=== PATIENT | male | born 1990 | race Caucasian/White ===

== ENCOUNTER 2016-07-30 11:38 | Inpatient (IN) | payer OTHER ==
[2016-07-30 12:56] VITALS: BMI 21.6
--- NOTE | 2016-07-30 13:47 | HP ---
CIWA Score - CIWA Score Nausea/Vomitin Muscle Tremors: 4-Moderate,w/Arms Extend Anxiety: 3 Agitation: 4-Moderately Restless Paroxysmal Sweats: 3 Orientation: 0-Oriented Tacttile Disturbances: 0-None Auditory Disturbances: 0-None Visual Disturbances: 0-None Headache: 0-None Present CIWA-Ar Total Score: 16 Admission ROS BHS - HPI Chief Complaint: I cant take the drinking anymore. Allergies/Adverse Reactions: Allergies Allergy/AdvReac Type Severity Reaction Status Date / Time No Known Allergies Allergy Verified 07/30/16 13:07 History of Present Illness: Pt is a 25yr old male with a history of alcohol and K2 dependence seeking detox for treatment. Exam Limitations: No Limitations - Ebola screening Have you traveled outside of the country in the last 21 days: No Have you had contact with anyone from an Ebola affected area: No Have you been sick,other than usual withdrawal symptoms: No Do you have a fever: No - Review of Systems Constitutional: Chills, Diaphoresis, Loss of Appetite, Night Sweats, Changes in sleep, Weight Stable, Unintentional Wgt. Loss EENT: reports: No Symptoms Reported Respiratory: reports: No Symptoms reported Cardiac: reports: No Symptoms Reported GI: reports: Poor Appetite, Poor Fluid Intake : reports: No Symptoms Reported Musculoskeletal: reports: Back Pain, Joint Pain Integumentary: reports: Flushing, Sweating Neuro: reports: Tingling, Tremors Endocrine: reports: Excessive Sweating, Flushing, Intolerance to Cold, Intolerance to Heat Hematology: reports: No Symptoms Reported Psychiatric: reports: Judgement Intact, Mood/Affect Appropiate, Orientated x3, Agitated, Anxious Other Systems: Reviewed and Negative Patient History - Patient Medical History Hx Anemia: No Hx Asthma: No Hx Chronic Obstructive Pulmonary Disease (COPD): No Hx Cancer: No Hx Cardiac Disorders: No Hx Congestive Heart Failure: No Hx Hypertension: No Hx Hypercholesterolemia: No Hx Pacemaker: No HX Cerebrovascular Accident: No Hx Seizures: No Hx Dementia: No Hx Diabetes: No Hx Gastrointestinal Disorders: No Hx Liver Disease: No Hx Genitourinary Disorders: No Hx Sexually Transmitted Disorders: No Hx Renal Disease (ESRD): No Hx Thyroid Disease: No Hx Human Immunodeficiency Virus (HIV): No (negative ) Hx Hepatitis C: No (negative) Hx Depression: Yes Hx Suicide Attempt: No (denies) Hx Bipolar Disorder: Yes Hx Schizophrenia: No - Patient Surgical History Past Surgical History: Yes Other Surgical History: R inguinal hernia repair. Anesthesia Reaction: No - PPD History Previous Implant?: Yes Documented Results: Negative w/o proof Implanted On Prior [facility] Admission?: No PPD to be Administered?: Yes - Reproductive History Patient is a Female of Child Bearing Age (11 -55 yrs old): No - Smoking Cessation Smoking history: Current every day smoker Have you smoked in the past 12 months: Yes Aproximately how many cigarettes per day: 4 Hx Chewing Tobacco Use: No Initiated information on smoking cessation: Yes 'Breaking Loose' booklet given: 07/30/16 - Substance & Tx. History Hx Alcohol Use: Yes Substance Use Type: Alcohol, Marijuana - Substances Abused Alcohol Route: Oral Frequency: Daily Amount used: 16 SHOTS COGNAC Age of first use: 17 Date of Last Use: 07/30/16 Marijuana/Hashish Route: Smoking Frequency: 3-6 times per week Amount used: 5 JOINTS Age of first use: 15 Date of Last Use: 07/29/16 K2 Route: Smoking Frequency: 1-2 times per week Amount used: 3 JOINTS Age of first use: 20 Date of Last Use: 07/29/16 Family Disease History - Family Disease History Family History: Denies Admission Physical Exam S - Vital Signs Vital Signs: Vital Signs - 24 hr 07/30/16 12:54 Temperature 97.1 F L Pulse Rate 96 H Respiratory 20 Rate Blood Pressure 109/73 - Physical General Appearance: Yes: Appropriately Dressed, Moderate Distress, Thin, Tremorous, Irritable, Sweating, Anxious HEENTM: Yes: Normal Voice Respiratory: Yes: Lungs Clear, Normal Breath Sounds, No Respiratory Distress Neck: Yes: No masses,lesions,Nodules Breast: Yes: Within Normal Limits Cardiology: Yes: Regular Rhythm, Regular Rate, S1, S2, Tachycardia Abdominal: Yes: Normal Bowel Sounds, Non Tender, Soft Genitourinary: Yes: Within Normal Limits Back: Yes: Normal Inspection Musculoskeletal: Yes: full range of Motion, Back pain Extremities: Yes: Tremors Neurological: Yes: Fully Oriented, Alert, Normal Response Integumentary: Yes: Normal Color, Diaphoresis Lymphatic: Yes: Within Normal Limits - Diagnostic (1) Alcohol dependence with uncomplicated withdrawal Current Visit: Yes Status: Chronic (2) Nicotine dependence Current Visit: Yes Status: Chronic Qualifiers: Nicotine product type: cigarettes Substance use status: uncomplicated Qualified Code(s): F17.210 - Nicotine dependence, cigarettes, uncomplicated (3) Weight loss Current Visit: Yes Status: Acute Cleared for Admission S - Detox or Rehab [facility] Level of Care: Medically Managed Detox Regimen/Protocol: Librium BHS Breath Alcohol Content Breath Alcohol Content: 0 Urine Drug Screen - Results Drug Screen Negative: No Urine Drug Screen Results: THC-Marijuana
[2016-07-30] MEDS ORDERED: NICOTINE POLACRILEX 2 MG GUM BUC PRN (13:53)
[2016-07-30] MEDS ORDERED: LOPERAMIDE HCL 2 MG CAPSULE PO PRN (13:53)
[2016-07-30] MEDS ORDERED: chlordiazePOXIDE HCL 25 MG CAPSULE PO PRN (13:53)
[2016-07-30] MEDS ORDERED: MAGNESIUM HYDROX 2400MG/30ML ORAL SUSPENSION 30 ML CUP PO PRN (13:53)
[2016-07-30] MEDS ORDERED: MAGNESIUM CITRATE 300 ML BOTTLE PO PRN (13:53)
[2016-07-30] MEDS ORDERED: MENTHOL/PHENOL 1 EACH UD MM PRN (13:53)
[2016-07-30] MEDS ORDERED: P-EPHED 60MG/TRIPROLIDI 2.5MG TABLET PO PRN (13:53)
[2016-07-30] MEDS ORDERED: diphenhydrAMINE HCL 50 MG CAPSULE PO PRN (13:53)
[2016-07-30] MEDS ORDERED: IBUPROFEN 400 MG TABLET (FP) PO PRN (13:53)
[2016-07-30] MEDS ORDERED: guaiFENesin/D-METHORPHAN HB 10 ML UNIT-DOSE CUPS PO PRN (13:53)
[2016-07-30] MEDS ORDERED: MAG HYDROX/AL HYDROX/SIMETH 30 ML UNIT-DOSE CUP PO PRN (13:53)
[2016-07-30] MEDS ORDERED: hydrOXYzine PAMOATE 50 MG CAPSULE (FP) PO PRN (13:53)
[2016-07-30] MEDS ORDERED: ACETAMINOPHEN 325 MG TABLET (FP) PO PRN (13:53)
[2016-07-30] MEDS ORDERED: chlordiazePOXIDE HCL 25 MG CAPSULE PO ONE (14:50)
--- NOTE | 2016-07-30 16:51 | CONSULT ---
[facility] Psychiatric Consult - Data Date of interview: 07/30/16 Admission source: [facility] Identifying data: First admission to [facility] for this 25 y/o male seeking detox treatment on for alcohol and marijuana dependence (K2) .Patient is single without children,domiciled,unemployed and dependent on his mother for financial support. Substance Abuse History: - Smoking Cessation. Smoking history: Current every day smoker. Have you smoked in the past 12 months: Yes. Aproximately how many cigarettes per day: 4. Hx Chewing Tobacco Use: No. Initiated information on smoking cessation: Yes. 'Breaking Loose' booklet given: 07/30/16. - Substance & Tx. History. Hx Alcohol Use: Yes. Substance Use Type: Alcohol, Marijuana. - Substances Abused. Alcohol. Route: Oral. Frequency: Daily. Amount used : 16 SHOTS COGNAC. Age of first use: 17. Date of Last Use: 07/30/16. Marijuana/Hashish. Route: Smoking. Frequency: 3-6 times per week. Amount used : 5 JOINTS. Age of first use: 15. Date of Last Use: 07/29/16. K2. Route: Smoking. Frequency: 1-2 times per week. Amount used: 3 JOINTS. Age of first use: 20. Date of Last Use: 07/29/16. Confirmed by patient. Medical History: Patient endorses good general health. Psychiatric History: Patient admits to a history of one psychiatric hospitalization at [facility] (2016).Suicidal ideation and behavioral dyscontrol were the circumstances leading to admission to the psychiatric inpatient service.Mr Duncan is uncertain about his " true " diagnosis.He does admit to recurrent " depressed feelings " but,according to the patient they seem to coincide with his continuous use of alcohol/marijuana (K2).He has neglected to honor his aftercare arrangements.No follow up since his discharge from [facility] (14-day retention).Mr Duncan indicates that he was not placed on psychotropic medications.Chronic issue : insomnia.Mr Duncan is requesting seroquel at bedtime (due to past history of good response to that drug).Patient denies history of suicide attempts. Physical/Sexual Abuse/Trauma History: Patient denies. Additional Comment: Urine Drug Screen Results: THC-Marijuana.Noted. Mental Status Exam - Mental Status Exam Alert and Oriented to: Time, Place, Person Cognitive Function: Good Patient Appearance: Well Groomed Mood: Withdrawn, Anxious (dysphoric), Apprehensive Affect: Mood Congruent Patient Behavior: Fatigued, Appropriate, Cooperative Speech Pattern: Clear Voice Loudness: Normal Thought Process: Goal Oriented Hallucinations: Denies Suicidal Ideation: Denies Homicidal Ideation: Denies Insight/Judgement: Poor Sleep: Poorly, Difficulty falling asleep Appetite: Good Muscle strength/Tone: Normal Gait/Station: Normal Psychiatric Findings - Problem List ([place] 1, 2,3) (1) Alcohol dependence with uncomplicated withdrawal Current Visit: Yes Status: Acute (2) Nicotine dependence Current Visit: Yes Status: Acute Qualifiers: Nicotine product type: cigarettes Substance use status: uncomplicated Qualified Code(s): F17.210 - Nicotine dependence, cigarettes, uncomplicated (3) Marijuana dependence Current Visit: Yes Status: Acute (4) Substance induced mood disorder Current Visit: Yes Status: Acute (5) Weight loss Current Visit: Yes Status: Acute (6) Insomnia Current Visit: Yes Status: Acute - Initial Treatment Plan Initial Treatment Plan: Psychoeducation.Detoxification.Medication :seroquel 50 mg po hs.Side effects/benefits discussed with the patient.He agrees with this plan.Observation.
[2016-07-30] MEDS: chlordiazePOXIDE HCL 25 MG CAPSULE PO SCH ×2 (17:13→22:12)
[2016-07-30 19:24] LABS: URINE APPEARANCE CLEAR; URINE BILIRUBIN NEGATIVE (NEGATIVE); URINE BLOOD NEGATIVE (NEGATIVE); URINE COLOR YELLOW; URINE GLUCOSE (UA) NEGATIVE (NEGATIVE); URINE KETONE NEGATIVE (NEGATIVE); URINE LEUK ESTERASE NEGATIVE (NEGATIVE); URINE NITRITE NEGATIVE (NEGATIVE); URINE PROTEIN NEGATIVE (NEGATIVE); URINE UROBILINOGEN NEGATIVE E.U./dl (0.2-1.0)
[2016-07-30] MEDS: THIAMINE HCL 100 MG TABLET (FP) PO SCH (22:12)
[2016-07-30] MEDS: QUEtiapine FUMARATE 50 MG TABLET PO SCH (22:12)
[2016-07-31] MEDS: chlordiazePOXIDE HCL 25 MG CAPSULE PO SCH ×4 (05:46→22:13)
[2016-07-31 09:00] LABS: HIV 1 & 2 AB NEGATIVE; HIV 1 AGp24 NEGATIVE
[2016-07-31] MEDS: NICOTINE 7 MG/24 HOURS TOPICAL PATCH TD SCH (10:05)
[2016-07-31] MEDS: PRENATAL VITAMINS W/ FOLIC ACID TABLET (FP) PO SCH (10:05)
[2016-07-31 10:15] LABS: MCHC 33.2 g/dl (32.0-35.9); MEAN CELL VOLUME 96.4 fl (80-96); MEAN PLT VOLUME 8.3 fl (7.5-11.1); PLATELET COUNT 359 K/MM3 (134-434); RDW 12.9 % (11.9-15.9); WHITE BLOOD COUNT 6.8 K/mm3 (4.0-10.0)
[2016-07-31 11:02] LABS: ALBUMIN 4.3 g/dl (3.4-5.0); ALK PHOS 70 U/L (45-117); ANION GAP 12 (8-16); BILIRUBIN,TOTAL 0.9 mg/dL (0.2-1.0); CALCIUM 9.6 mg/dL (8.5-10.1); CO2 25 mmol/L (21-32); CREATININE 1.1 mg/dL (0.7-1.3); GLUCOSE,RANDOM 102 mg/dL (74-106); SGOT/AST 11 U/L (15-37); SGPT/ALT 10 U/L (12-78); TOT PROT 7.5 g/dl (6.4-8.2)
--- NOTE | 2016-07-31 11:15 | PN ---
[facility] CIWA - CIWA Score Nausea/Vomitin-No Nausea/No Vomiting Muscle Tremors: 4-Moderate,w/Arms Extend Anxiety: 4-Mod. Anxious/Guarded Agitation: 4-Moderately Restless Paroxysmal Sweats: 1-Minimal Palms Moist Orientation: 0-Oriented Tacttile Disturbances: 3-Moderate Itch/Numb/Burn Auditory Disturbances: 0-None Visual Disturbances: 0-None Headache: 0-None Present CIWA-Ar Total Score: 16 BHS Progress Note (SOAP) Subjective: ANXIETY,SWEATS,NAUSEA/VOMITING,MUSCLE ACHES. Objective: 07/31/16 11:29 Vital Signs Temperature 96.4 F L 07/31/16 09:43 Pulse Rate 60 07/31/16 09:43 Respiratory Rate 18 07/31/16 09:43 Blood Pressure 124/90 07/31/16 09:43 O2 Sat by Pulse Oximetry (%) Laboratory Last Values WBC 6.8 K/mm3 (4.0-10.0) 07/31/16 06:00 RBC 4.54 M/mm3 (4.00-5.60) 07/31/16 06:00 Hgb 14.5 GM/dL (11.7-16.9) 07/31/16 06:00 Hct 43.7 % (35.4-49) 07/31/16 06:00 MCV 96.4 fl (80-96) H 07/31/16 06:00 MCHC 33.2 g/dl (32.0-35.9) 07/31/16 06:00 RDW 12.9 % (11.9-15.9) 07/31/16 06:00 Plt Count 359 K/MM3 (134-434) 07/31/16 06:00 MPV 8.3 fl (7.5-11.1) 07/31/16 06:00 Sodium 137 mmol/L (136-145) 07/31/16 06:00 Potassium 3.9 mmol/L (3.5-5.1) 07/31/16 06:00 Chloride 100 mmol/L (98-107) 07/31/16 06:00 Carbon Dioxide 25 mmol/L (21-32) 07/31/16 06:00 Anion Gap 12 (8-16) 07/31/16 06:00 BUN 13 mg/dL (7-18) 07/31/16 06:00 Creatinine 1.1 mg/dL (0.7-1.3) 07/31/16 06:00 Creat Clearance w eGFR > 60 (>60) 07/31/16 06:00 Random Glucose 102 mg/dL (74-106) 07/31/16 06:00 Calcium 9.6 mg/dL (8.5-10.1) 07/31/16 06:00 Total Bilirubin 0.9 mg/dL (0.2-1.0) 07/31/16 06:00 AST 11 U/L (15-37) L 07/31/16 06:00 ALT 10 U/L (12-78) L 07/31/16 06:00 Alkaline Phosphatase 70 U/L (45-117) 07/31/16 06:00 Total Protein 7.5 g/dl (6.4-8.2) 07/31/16 06:00 Albumin 4.3 g/dl (3.4-5.0) 07/31/16 06:00 Urine Color Yellow 07/30/16 14:00 Urine Appearance Clear 07/30/16 14:00 Urine pH 5.0 (5.0-8.0) 07/30/16 14:00 Ur Specific [place] 1.032 (1.001-1.035) 07/30/16 14:00 Urine Protein Negative (NEGATIVE) 07/30/16 14:00 Urine Glucose (UA) Negative (NEGATIVE) 07/30/16 14:00 Urine Ketones Negative (NEGATIVE) 07/30/16 14:00 Urine Blood Negative (NEGATIVE) 07/30/16 14:00 Urine Nitrite Negative (NEGATIVE) 07/30/16 14:00 Urine Bilirubin Negative (NEGATIVE) 07/30/16 14:00 Urine Urobilinogen Negative E.U./dl (0.2-1.0) 07/30/16 14:00 Ur Leukocyte Esterase Negative (NEGATIVE) 07/30/16 14:00 HIV 1&2 Antibody Screen Negative 07/30/16 13:40 HIV P24 Antigen Negative 07/30/16 13:40 Assessment: 07/31/16 11:30 WITHDRAWAL SX Plan: CONTINUE DETOX TIGAN OR ZOFRAN PRN MOTRIN PRN.
[2016-07-31] MEDS ORDERED: ONDANSETRON *ODT* 4 MG TABLET SL PRN (11:31)
--- NOTE | 2016-07-31 16:18 | EKG ---
Test Reason : Blood Pressure : / mmHG Vent. Rate : 078 BPM Atrial Rate : 078 BPM P-R Int : 126 ms QRS Dur : 090 ms QT Int : 348 ms P-R-T Axes : 024 070 052 degrees QTc Int : 396 ms NORMAL SINUS RHYTHM WITH SINUS ARRHYTHMIA NORMAL ECG NO PREVIOUS ECGS AVAILABLE Confirmed by JONA CAMPBELL, JENNIFFER ([id number]) on 07/31/2016 4:18:01 PM Referred By: Confirmed By:JENNIFFER TENORIO MD
[2016-07-31] MEDS: QUEtiapine FUMARATE 50 MG TABLET PO SCH (22:12)
[2016-07-31] MEDS: THIAMINE HCL 100 MG TABLET (FP) PO SCH (22:12)
[2016-08-01] MEDS: chlordiazePOXIDE HCL 25 MG CAPSULE PO SCH ×2 (05:39→10:02)
[2016-08-01] MEDS: NICOTINE 7 MG/24 HOURS TOPICAL PATCH TD SCH (10:02)
[2016-08-01] MEDS: PRENATAL VITAMINS W/ FOLIC ACID TABLET (FP) PO SCH (10:02)
--- NOTE | 2016-08-01 10:35 | PN ---
[facility] CIWA - CIWA Score Nausea/Vomitin-Mild Nausea/No Vomiting Muscle Tremors: 4-Moderate,w/Arms Extend Anxiety: 4-Mod. Anxious/Guarded Agitation: 4-Moderately Restless Paroxysmal Sweats: 3 Orientation: 0-Oriented Tacttile Disturbances: 0-None Auditory Disturbances: 0-None Visual Disturbances: 0-None Headache: 0-None Present CIWA-Ar Total Score: 16 BHS Progress Note (SOAP) Subjective: Anxiety,tremors,interrupted sleep,restless Objective: 08/01/16 10:34 Vital Signs - 8 hr 08/01/16 08/01/16 08/01/16 03:31 06:21 09:28 Temperature 97.6 F 96.6 F L Pulse Rate 79 88 Respiratory 18 18 18 Rate Blood Pressure 125/82 133/94 Laboratory Last Values WBC 6.8 K/mm3 (4.0-10.0) 07/31/16 06:00 RBC 4.54 M/mm3 (4.00-5.60) 07/31/16 06:00 Hgb 14.5 GM/dL (11.7-16.9) 07/31/16 06:00 Hct 43.7 % (35.4-49) 07/31/16 06:00 MCV 96.4 fl (80-96) H 07/31/16 06:00 MCHC 33.2 g/dl (32.0-35.9) 07/31/16 06:00 RDW 12.9 % (11.9-15.9) 07/31/16 06:00 Plt Count 359 K/MM3 (134-434) 07/31/16 06:00 MPV 8.3 fl (7.5-11.1) 07/31/16 06:00 Sodium 137 mmol/L (136-145) 07/31/16 06:00 Potassium 3.9 mmol/L (3.5-5.1) 07/31/16 06:00 Chloride 100 mmol/L (98-107) 07/31/16 06:00 Carbon Dioxide 25 mmol/L (21-32) 07/31/16 06:00 Anion Gap 12 (8-16) 07/31/16 06:00 BUN 13 mg/dL (7-18) 07/31/16 06:00 Creatinine 1.1 mg/dL (0.7-1.3) 07/31/16 06:00 Creat Clearance w eGFR > 60 (>60) 07/31/16 06:00 Random Glucose 102 mg/dL (74-106) 07/31/16 06:00 Calcium 9.6 mg/dL (8.5-10.1) 07/31/16 06:00 Total Bilirubin 0.9 mg/dL (0.2-1.0) 07/31/16 06:00 AST 11 U/L (15-37) L 07/31/16 06:00 ALT 10 U/L (12-78) L 07/31/16 06:00 Alkaline Phosphatase 70 U/L (45-117) 07/31/16 06:00 Total Protein 7.5 g/dl (6.4-8.2) 07/31/16 06:00 Albumin 4.3 g/dl (3.4-5.0) 07/31/16 06:00 Urine Color Yellow 07/30/16 14:00 Urine Appearance Clear 07/30/16 14:00 Urine pH 5.0 (5.0-8.0) 07/30/16 14:00 Ur Specific [place] 1.032 (1.001-1.035) 07/30/16 14:00 Urine Protein Negative (NEGATIVE) 07/30/16 14:00 Urine Glucose (UA) Negative (NEGATIVE) 07/30/16 14:00 Urine Ketones Negative (NEGATIVE) 07/30/16 14:00 Urine Blood Negative (NEGATIVE) 07/30/16 14:00 Urine Nitrite Negative (NEGATIVE) 07/30/16 14:00 Urine Bilirubin Negative (NEGATIVE) 07/30/16 14:00 Urine Urobilinogen Negative E.U./dl (0.2-1.0) 07/30/16 14:00 Ur Leukocyte Esterase Negative (NEGATIVE) 07/30/16 14:00 RPR Titer Nonreactive (NONREACTIVE) 07/31/16 06:00 HIV 1&2 Antibody Screen Negative 07/30/16 13:40 HIV P24 Antigen Negative 07/30/16 13:40 labs noted Assessment: 08/01/16 10:34 withdrawal sx. Plan: continue detox
[2016-08-01] MEDS: chlordiazePOXIDE 5 MG CAPSULE PO SCH ×2 (17:09→22:10)
[2016-08-01] MEDS: QUEtiapine FUMARATE 50 MG TABLET PO SCH (22:09)
[2016-08-01] MEDS: THIAMINE HCL 100 MG TABLET (FP) PO SCH (22:09)
[2016-08-02] MEDS: chlordiazePOXIDE 5 MG CAPSULE PO SCH ×2 (05:14→10:09)
[2016-08-02] MEDS: PRENATAL VITAMINS W/ FOLIC ACID TABLET (FP) PO SCH (10:09)
[2016-08-02] MEDS: NICOTINE 7 MG/24 HOURS TOPICAL PATCH TD SCH (10:09)
--- NOTE | 2016-08-02 13:59 | PN ---
BHS Progress Note (SOAP) Subjective: Body Aches, Poor Appetite, Diarrhea, Back Ache, Nausea, interrupted sleep, Sweating. Objective: PT. A & O X 3, OBSERVED AMBULATING ON UNIT. 08/02/16 13:58 Vital Signs Temperature 96.8 F L 08/02/16 10:57 Pulse Rate 85 08/02/16 10:57 Respiratory Rate 20 08/02/16 10:57 Blood Pressure 126/88 08/02/16 10:57 O2 Sat by Pulse Oximetry (%) Laboratory Last Values WBC 6.8 K/mm3 (4.0-10.0) 07/31/16 06:00 RBC 4.54 M/mm3 (4.00-5.60) 07/31/16 06:00 Hgb 14.5 GM/dL (11.7-16.9) 07/31/16 06:00 Hct 43.7 % (35.4-49) 07/31/16 06:00 MCV 96.4 fl (80-96) H 07/31/16 06:00 MCHC 33.2 g/dl (32.0-35.9) 07/31/16 06:00 RDW 12.9 % (11.9-15.9) 07/31/16 06:00 Plt Count 359 K/MM3 (134-434) 07/31/16 06:00 MPV 8.3 fl (7.5-11.1) 07/31/16 06:00 Sodium 137 mmol/L (136-145) 07/31/16 06:00 Potassium 3.9 mmol/L (3.5-5.1) 07/31/16 06:00 Chloride 100 mmol/L (98-107) 07/31/16 06:00 Carbon Dioxide 25 mmol/L (21-32) 07/31/16 06:00 Anion Gap 12 (8-16) 07/31/16 06:00 BUN 13 mg/dL (7-18) 07/31/16 06:00 Creatinine 1.1 mg/dL (0.7-1.3) 07/31/16 06:00 Creat Clearance w eGFR > 60 (>60) 07/31/16 06:00 Random Glucose 102 mg/dL (74-106) 07/31/16 06:00 Calcium 9.6 mg/dL (8.5-10.1) 07/31/16 06:00 Total Bilirubin 0.9 mg/dL (0.2-1.0) 07/31/16 06:00 AST 11 U/L (15-37) L 07/31/16 06:00 ALT 10 U/L (12-78) L 07/31/16 06:00 Alkaline Phosphatase 70 U/L (45-117) 07/31/16 06:00 Total Protein 7.5 g/dl (6.4-8.2) 07/31/16 06:00 Albumin 4.3 g/dl (3.4-5.0) 07/31/16 06:00 Urine Color Yellow 07/30/16 14:00 Urine Appearance Clear 07/30/16 14:00 Urine pH 5.0 (5.0-8.0) 07/30/16 14:00 Ur Specific [place] 1.032 (1.001-1.035) 07/30/16 14:00 Urine Protein Negative (NEGATIVE) 07/30/16 14:00 Urine Glucose (UA) Negative (NEGATIVE) 07/30/16 14:00 Urine Ketones Negative (NEGATIVE) 07/30/16 14:00 Urine Blood Negative (NEGATIVE) 07/30/16 14:00 Urine Nitrite Negative (NEGATIVE) 07/30/16 14:00 Urine Bilirubin Negative (NEGATIVE) 07/30/16 14:00 Urine Urobilinogen Negative E.U./dl (0.2-1.0) 07/30/16 14:00 Ur Leukocyte Esterase Negative (NEGATIVE) 07/30/16 14:00 RPR Titer Nonreactive (NONREACTIVE) 07/31/16 06:00 HIV 1&2 Antibody Screen Negative 07/30/16 13:40 HIV P24 Antigen Negative 07/30/16 13:40 LABS NOTED. Assessment: 08/02/16 13:59 WITHDRAWAL SYMPTOMS. Plan: CONTINUE DETOX.
[2016-08-02] MEDS: chlordiazePOXIDE HCL 10 MG CAPSULE PO SCH ×2 (17:18→22:21)
[2016-08-02] MEDS: QUEtiapine FUMARATE 50 MG TABLET PO SCH (22:21)
[2016-08-02] MEDS: THIAMINE HCL 100 MG TABLET (FP) PO SCH (22:21)
[2016-08-03] MEDS: chlordiazePOXIDE HCL 10 MG CAPSULE PO SCH (05:13)
--- NOTE | 2016-08-03 09:53 | DS ---
[facility] Detox Discharge Summary Admission Date: 07/30/16 Discharge Date: 08/03/16 - History Present History: Alcohol Dependence, Cannabis Dependence Pertinent Past History: Insomnia - Physical Exam Results Vital Signs: Vital Signs Temperature 97.3 F L 08/03/16 06:17 Pulse Rate 84 08/03/16 06:17 Respiratory Rate 18 08/03/16 06:17 Blood Pressure 116/79 08/03/16 06:17 O2 Sat by Pulse Oximetry (%) Pertinent Admission Physical Exam Findings: Withdrawal sx. Laboratory Tests 07/30/16 07/30/16 07/31/16 13:40 14:00 06:00 WBC 6.8 RBC 4.54 Hgb 14.5 Hct 43.7 MCV 96.4 H MCHC 33.2 RDW 12.9 Plt Count 359 MPV 8.3 Sodium Potassium Chloride Carbon Dioxide Anion Gap BUN Creatinine Creat Clearance w eGFR Random Glucose Calcium Total Bilirubin AST ALT Alkaline Phosphatase Total Protein Albumin Urine Color Yellow Urine Appearance Clear Urine pH 5.0 Ur Specific [place] 1.032 Urine Protein Negative Urine Glucose (UA) Negative Urine Ketones Negative Urine Blood Negative Urine Nitrite Negative Urine Bilirubin Negative Urine Urobilinogen Negative Ur Leukocyte Esterase Negative RPR Titer HIV 1&2 Antibody Screen Negative HIV P24 Antigen Negative 07/31/16 07/31/16 06:00 06:00 WBC RBC Hgb Hct MCV MCHC RDW Plt Count MPV Sodium 137 Potassium 3.9 Chloride 100 Carbon Dioxide 25 Anion Gap 12 BUN 13 Creatinine 1.1 Creat Clearance w eGFR > 60 Random Glucose 102 Calcium 9.6 Total Bilirubin 0.9 AST 11 L ALT 10 L Alkaline Phosphatase 70 Total Protein 7.5 Albumin 4.3 Urine Color Urine Appearance Urine pH Ur Specific [place] Urine Protein Urine Glucose (UA) Urine Ketones Urine Blood Urine Nitrite Urine Bilirubin Urine Urobilinogen Ur Leukocyte Esterase RPR Titer Nonreactive HIV 1&2 Antibody Screen HIV P24 Antigen labs noted - Treatment Hospital Course: Detox Protocol Followed, Detoxed Safely, Responded well, Discharged Condition Good, Rehab Referral Accepted - Medication Discharge Medications: Ambulatory Orders NK [No Known Home Medication] 07/30/16 - Diagnosis (1) Alcohol dependence with uncomplicated withdrawal Current Visit: Yes Status: Acute (2) Insomnia Current Visit: Yes Status: Acute Qualifiers: Insomnia type: alcohol-induced Qualified Code(s): F10.982 - Alcohol use, unspecified with alcohol-induced sleep disorder (3) Marijuana dependence Current Visit: Yes Status: Acute (4) Nicotine dependence Current Visit: Yes Status: Acute Qualifiers: Nicotine product type: cigarettes Substance use status: uncomplicated Qualified Code(s): F17.210 - Nicotine dependence, cigarettes, uncomplicated (5) Substance induced mood disorder Current Visit: Yes Status: Acute - AMA Did Patient Leave Against Medical Advice: No
[2016-08-03 11:21] VITALS: BP 121/88; PULSE 77; TEMP 95.3
== END 2016-08-03 09:56 | disposition home or self-care (01) | DRG 775 ==
LOC: YASAS 11:38 → Y3N 14:08
PROVIDERS: ADMIT Internal Medicine; ATTEND Internal Medicine
PROC: HZ2ZZZZ Detoxification Services for Substance Abuse Treatment (ICD-10-PCS; principal; 2016-08-03)
DX: F10.230 Alcohol dependence with withdrawal, uncomplicated (principal); F12.20 Cannabis dependence, uncomplicated; F17.210 Nicotine dependence, cigarettes, uncomplicated; F19.24 Other psychoactive substance dependence with psychoactive substance-induced mood disorder; G47.00 Insomnia, unspecified; R63.4 Abnormal weight loss; Z68.21 Body mass index [BMI] 21.0-21.9, adult
CPT/HCPCS: 36415; 80053; 81003; 85027; 86593; 87389; 93005; 93010